=== PATIENT | male | born 2000 | race Caucasian/White ===

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

== ENCOUNTER 2021-12-21 20:21 | Emergency (ER) | payer MEDICAID ==
[~2021-12-21] VITALS: Ht 177.8 cm; Wt 72.6 kg
[2021-12-21 21:06] VITALS: BP 115/75
[2021-12-21] MEDS ORDERED: NACL 0.9% 1,000 ML IV ONE ×2 (21:10→22:25)
--- NOTE | 2021-12-21 21:13 | NUR ---
TO LOBBY FOLLOWING TRIAGE
[2021-12-21 21:48] LABS: BASOPHILS % (AUTO) 0.4 % (0.0-2.0); HEMOGLOBIN 15.7 g/dL (12.0-18.0); LYMPHOCYTES # (AUTO) 1.1 K/uL (2.0-11.5); LYMPHOCYTES % (AUTO) 12.6 % (20.5-51.1); MEAN CORPUSCULAR HEMOGLOBIN 30 pg (27-31); MEAN CORPUSCULAR HGB CONC 35 g/dL (33-37); MEAN CORPUSCULAR VOLUME 86.4 fL (80-94); MONOCYTES # (AUTO) 0.8 K/uL (0.8-1.0); MONOCYTES % (AUTO) 9.1 % (1.7-9.3); NEUTROPHILS % (AUTO) 77.9 % (42.2-75.2); PLATELET COUNT (AUTO) 149 K/uL (140-450); RED BLOOD CELL COUNT(AUTO) 5.21 MIL/uL (4.20-6.10); RED CELL DISTRIBUTION WIDTH 13.4 % (11.6-13.7)
[2021-12-21 22:16] LABS: ALBUMIN 3.7 g/dL (3.4-5.0); ANION GAP 14.3 (8-16); CARBON DIOXIDE 26.2 mmol/L (21-32); POTASSIUM 4.5 mmol/L (3.5-5.1)
--- NOTE | 2021-12-21 22:18 | NUR ---
PT TO BED 2, DR KRUSE AT BEDSIDE
[2021-12-21 23:41] LABS: APPEARANCE,URINE CLEAR (CLEAR); BILIRUBIN,URINE 1+ (NEGATIVE); BLOOD, URINE 2+ (NEGATIVE); LEUKOCYTE ESTERASE ,URINE NEGATIVE (NEGATIVE); NITRITE, URINE NEGATIVE (NEGATIVE); UGLUCOSE NEGATIVE (NEGATIVE)
--- NOTE | 2021-12-21 23:45 | NUR ---
2199: PT CAME IN FOR GEN WEAKNESS EVALUATION. A/OX4, DENIES PAIN, NO N/V. 0: NS BOLUS COMPLETED 2329: UA DONE
[2021-12-22 00:10] LABS: COLOR,URINE DARK YELLOW (YELLOW)
[2021-12-22 00:11] LABS: RBC,URINE 0-5 /HPF (0-5); WBC,URINE 0-5 /HPF (0-5)
[2021-12-22] MEDS ORDERED: IBUP-2213 PO (01:37)
[2021-12-22 01:40] VITALS: BP 113/65
--- NOTE | 2021-12-22 01:40 | NUR ---
PT TO DC HOME WITH DC INSTRUCTIONS GIVEN BY ROCCO BAKER. PAPERS SIGNED BY PT'S FATHER.
== END 2021-12-22 01:41 | disposition home or self-care (01) ==
LOC: MED 20:21
DX: B34.9 Viral infection, unspecified (principal); E86.0 Dehydration; R10.9 Unspecified abdominal pain; Z79.899 Other long term (current) drug therapy
CPT/HCPCS: 36415; 80053; 81001; 83605; 85025; 87040; 87086; 96360; 99284